=== PATIENT | male | born 1980 | race Caucasian/White ===

== ENCOUNTER 2019-01-07 03:10 | Emergency (ER) | payer MEDICAID, SELFPAY ==
[2019-01-07 03:12] VITALS: BP 165/95; PULSE 78; RESP 18; TEMP 36.9; O2SAT 98; BMI 23.8
--- NOTE | 2019-01-07 03:26 | EKG12_ITS ---
Test Reason : CP Blood Pressure : / mmHG Vent. Rate : 069 BPM Atrial Rate : 069 BPM P-R Int : 102 ms QRS Dur : 086 ms QT Int : 388 ms P-R-T Axes : 023 064 044 degrees QTc Int : 415 ms Sinus rhythm with short [place] Otherwise normal ECG Confirmed by SELWYN MEJÍA, AVA ([id number]), rewrite editor MARTA CORRIGAN ([id number] on 01/11/2019 4:33:18 PM Referred By: BB Confirmed By:AVA SAMANO MD
--- NOTE | 2019-01-07 03:26 | RAD_ITS ---
HISTORY: CPChest PainRAD - Chestpossible alcohol withdrawal EXAM: XR Chest 1 View COMPARISON: None FINDINGS: LINES/DEVICES: None. LUNGS: Radiographically clear. No consolidation, edema or effusion. No pneumothorax. Hyperinflation bilaterally. MEDIASTINUM AND CARDIOVASCULAR STRUCTURES: Cardiac silhouette not enlarged. Central airways and mediastinal contour are unremarkable. BONES AND SOFT TISSUES: Unremarkable. RAD/Chest 1 View (Portable) IMPRESSION: Hyperinflation may be due to deep inspiration or COPD. No radiographic evidence of acute cardiopulmonary disease. at [id number] Reported and signed by: Jose Alejandro Damico MD Electronically Signed: Jose Alejandro Damico, at 4:15 EDT Tel , Service support ,
--- NOTE | 2019-01-07 03:27 | ED.VIS.GEN ---
History of Present Illness Chief Complaint: Chest Pain Informant: Patient Onset: Hours - 12-15 Context: Gradual Onset Timing: Continuous Quality: burning Location: entire chest and epigastrium. no radiation. Current Severity: Moderate Maximum Severity: Moderate Worsened by: lying down. nonexertional, nonpleuritic. Relieved by: nothing Associated Symptoms: sob, anxious, nausea, upper abd cramping Narrative: Patient states symptoms started the same day that he is trying to stop drinking. He has been in detox for alcohol twice this year, the last time was last month. He has been binge drinking for the past 2.5 weeks, and today he went from drinking 20 beers a day down to 8, total. While doing this, he started feeling like he was withdrawing, including the above symptoms which he has had before with withdrawals. He has a history of using heroin and cocaine but not in a while, he states. No cocaine use this year. Wants to stop drinking. - Past Medical History (1) Alcoholism Status: Chronic (2) Hypertension Status: Chronic Past Medical History - Allergies and Home Meds Allergies/Adverse Reactions: Allergies Sulfa (Sulfonamide Antibiotics) Adverse Reaction (Verified 01/07/19 03:14) Hives Lives: Spouse/ Significant Other Smoking Status: Current every day smoker Alcohol: Heavy Drugs: None - Currently Review of Systems General: Reports: Malaise, Sweats. Denies: Chills, Fever Eyes: Denies: Visual changes - bilaterally, Diplopia ENT: Denies: Rhinorrhea, Sore throat Cardiovascular: Reports: Chest pain. Denies: Palpitations Respiratory: Reports: Dyspnea. Denies: Cough, Dyspnea on exertion Gastrointestinal: Reports: Abdominal pain, Nausea. Denies: Vomiting, Diarrhea, Melena, Hematochezia Genitourinary: Denies: Dysuria, Hematuria, Frequency Musculoskeletal: Denies: Back pain, Swelling, Extremity Pain Skin: Denies: Rash, Wounds Neurological: Denies: Headache, Weakness, Numbness Psych: Reports: Anxiety. Denies: Suicidal thoughts Physical Exam Vital Signs/Narrative: Vital Signs Temp Pulse Resp BP Pulse Ox 01/07/19 03:12 98.4 F 78 18 165/95 H 98 Inital Vital Signs reviewed: Yes General: Well nourished, Well developed, No Acute Distress Head: Normocephalic, Atraumatic Eyes: Perrl, EOMI ENT: Moist mucous membranes, No rhinorrhea Neck: Supple, Nontender Cardiovascular: Regular rate, Regular rhythm, No murmurs. Negative for: Tachycardia Respiratory: No distress, CTA bilaterally, Chest nontender Abdomen: Soft, Nondistended, Normal bowel sounds, Tender - mild epigastric. Negative for: Guarding, Rebound tenderness Back: Nontender, Normal Inspection Extremities: Nontender, No edema. Negative for: Calf Tenderness Skin: Normal color, No rash, No Trauma. Negative for: Diaphoresis Neurological: Alert, Oriented x3, Cranial nerves II-XII grossly intact, Normal Strength, Normal Sensation Psychological: Normal Mood, - - anxious. cooperative. Diagnostic/Tx/Re-eval Impressions Chest X-Ray 01/07/19 03:26 IMPRESSION: Hyperinflation may be due to deep inspiration or COPD. No radiographic evidence of acute cardiopulmonary disease. at 0417 Reported and signed by: Jose Alejandro Damico MD Electronically Signed: Jose Alejandro Damico, at 4:15 EDT Tel , Service support , 01/07/19 03:26 Chest 1 View (Portable) [RAD] Stat Laboratory Results 01/07/19 01/07/19 01/07/19 03:36 03:36 03:36 WBC Cancelled Corrected WBC Cancelled RBC Cancelled Hgb Cancelled Hct Cancelled MCV Cancelled MCH Cancelled MCHC Cancelled RDW Cancelled RDW Differential Cancelled Plt Count Cancelled MPV Cancelled Immature Gran % (Auto) Cancelled Neut % (Auto) Cancelled Lymph % (Auto) Cancelled [place] % (Auto) Cancelled Eos % (Auto) Cancelled Baso % (Auto) Cancelled Immature Gran # (Auto) Cancelled Absolute Neuts (auto) Cancelled Absolute Lymphs (auto) Cancelled Absolute Monos (auto) Cancelled Total Counted Cancelled Neutrophils % (Manual) Cancelled Band Neutrophils % Cancelled Lymphocytes % (Manual) Cancelled Monocytes % (Manual) Cancelled Eosinophils % (Manual) Cancelled Basophils % (Manual) Cancelled Metamyelocytes % Cancelled Myelocytes % Cancelled Promyelocytes % Cancelled Blast Cells % Cancelled Plasma Cell % (Manual) Cancelled Other Cells % Cancelled Lymphocytes # Cancelled Nucleated RBCs/100 WBC Cancelled Differential Comment Cancelled Diff Path Review Cancelled Hypersegmented Neuts Cancelled Atypical Lymphocytes Cancelled Reactive Lymphocytes Cancelled Smudge Cells Cancelled Eosinophilia # Cancelled Basophilia # Cancelled Toxic Granulation Cancelled Dohle Bodies Cancelled Kee Rods Cancelled Platelet Estimate Cancelled Plt Morphology Comment Cancelled RBC Morphology Cancelled Polychromasia Cancelled Hypochromasia Cancelled Poikilocytosis Cancelled Basophilic Stippling Cancelled Anisocytosis Cancelled Microcytosis Cancelled Macrocytosis Cancelled Spherocytes Cancelled Sickle Cells Cancelled Target Cells Cancelled Tear Drop Cells Cancelled Ovalocytes Cancelled Stomatocytes Cancelled [place] Bodies Cancelled Adwoa Cells Cancelled Bite Cells Cancelled Acanthocytes (Spur) Cancelled Rouleaux Cancelled Schistocytes Cancelled Sodium Cancelled Potassium Cancelled Chloride Cancelled Carbon Dioxide Cancelled Anion Gap Cancelled BUN Cancelled Creatinine Cancelled Estim Creat Clear Calc Cancelled Est GFR (MDRD) Af Amer Cancelled Est GFR (MDRD) Non-Af Cancelled BUN/Creatinine Ratio Cancelled Glucose Cancelled Calcium Cancelled Troponin I Cancelled Ur Drug Screen Comment Ethyl Alcohol Cancelled 01/07/19 01/07/19 01/07/19 04:00 04:00 04:00 WBC 10.4 Corrected WBC RBC 5.69 Hgb 17.8 H Hct 51.3 MCV 90.2 MCH 31.3 MCHC 34.7 RDW 13.0 RDW Differential 43.3 Plt Count 166 MPV 9.7 Immature Gran % (Auto) 0.100 Neut % (Auto) 73.0 H Lymph % (Auto) 16.2 L [place] % (Auto) 7.4 Eos % (Auto) 3.1 Baso % (Auto) 0.2 Immature Gran # (Auto) Absolute Neuts (auto) 7.6 Absolute Lymphs (auto) 1.69 Absolute Monos (auto) Total Counted Not Reportable Neutrophils % (Manual) Band Neutrophils % Lymphocytes % (Manual) Monocytes % (Manual) Eosinophils % (Manual) Basophils % (Manual) Metamyelocytes % Myelocytes % Promyelocytes % Blast Cells % Plasma Cell % (Manual) Other Cells % Lymphocytes # Nucleated RBCs/100 WBC Differential Comment Diff Path Review Hypersegmented Neuts Atypical Lymphocytes Reactive Lymphocytes Smudge Cells Eosinophilia # Basophilia # Toxic Granulation Dohle Bodies Kee Rods Platelet Estimate Plt Morphology Comment RBC Morphology Polychromasia Hypochromasia Poikilocytosis Basophilic Stippling Anisocytosis Microcytosis Macrocytosis Spherocytes Sickle Cells Target Cells Tear Drop Cells Ovalocytes Stomatocytes [place] Bodies Adwoa Cells Bite Cells Acanthocytes (Spur) Rouleaux Schistocytes Sodium 138 Potassium 3.9 Chloride 102 Carbon Dioxide 28.0 Anion Gap 8 BUN 12 Creatinine 0.79 Estim Creat Clear Calc 139.16 Est GFR (MDRD) Af Amer 142 Est GFR (MDRD) Non-Af 117 BUN/Creatinine Ratio 15.3 Glucose 118 H Calcium 8.8 Troponin I < 0.015 Ur Drug Screen Comment Ethyl Alcohol 5.0 - Rhythm Strip Rhythm Strip: Sinus Rhythm Rate: 70 Ectopy: None - EKG Initial EKG Interpretation: Sinus Rhythm, No Acute Injury Pattern - normal ekg - Medical Decision Making Workup is negative. After IV fluids, Zofran, Ativan, patient is feeling much better, appears less tremulous and anxious. He was offered inpatient detox. He is interested in it, and asked a lot of questions, as did his significant other. He wants to stop drinking. However he does not have insurance coverage right now and unfortunately the detox unit requires $5000 upfront in this scenario. He does not need to be admitted medically, he is in no life-threatening danger of delirium tremens right now. He states he has gotten himself off of alcohol in the past, and wishes to do so if he is able along with outpatient help. He was given several resources including [facility] and [facility]. He is always welcome to return if he gets worse and we discussed signs and symptoms to watch for. They are comfortable with this plan and will call for outpatient assistance. After a GI cocktail, his chest discomfort and abdominal discomfort are resolved, and I do not think there is any cardiac component to the symptoms. ED Disposition - Plan for ED Patient: Disposition: Home or Assisted Living Diagnosis: Chest pain, unspecified, Alcohol withdrawal, Anxiety Instructions: ED Chest Pain NonCardiac, ED Withdrawal Alcohol Referrals: Lauren Gramajo [NON-STAFF] - (for primary care while uninsured) [facility] [STAFF PHYSICIAN] - (for outpatient rehab services)
[2019-01-07] MEDS: Ondansetron 4 MG/2 ML Vial IV (03:57)
[2019-01-07] MEDS: 0.9% Normal Saline 1,000 ML 250 ML IV (03:57)
[2019-01-07] MEDS: LORazepam 2 MG/ML Syringe 1 MG IV (03:58)
[2019-01-07] MEDS: Mag Hydrox/Al Hydrox/Simeth 30 ML UDC PO (04:04)
[2019-01-07 04:12] LABS: Absolute Lymphocyte Count 1.69 X10^3/ul (0.83-4.51); Absolute Neutrophil Count 7.6 X10^3/uL (2.0-7.7); Basophil# 0.02 X10^3/uL; Basophil% 0.2 % (0-1); Eosinophil# 0.32 X10^3/uL; Eosinophils% 3.1 % (0-5); Hematocrit 51.3 % (40-54); Hemoglobin 17.8 g/dl (13.0-16.5); Lymphocyte # 1.69 X10^3/ul (4.0); Lymphocyte % 16.2 % (19-41); Mean Corp Hgb Conc 34.7 g/gl (32-36); Mean Corpuscular Hgb 31.3 pg (27.0-32.0); Mean Corpuscular Volume 90.2 fL (80-94); Mean Platelet Vol. 9.7 fl (6.2-12.0); Monocyte# 0.77 X10^3/uL; Monocyte% 7.4 % (0-10); Neutrophil # 7.61 X10^3/uL (2.7-7.7); Platelet Count 166 K/mm3 (150-450); RBC Distribution Width SD 43.3 fl (35.1-43.9); Red Blood Count 5.69 M/mm3 (4.6-6.2); White Blood Count 10.4 K/mm3 (4.4-11.0)
[2019-01-07 04:14] LABS: POSITIVE COUNT NO; POSITIVE DIFFERENTIAL NO; POSITIVE MORPHOLOGY NO
[2019-01-07 04:24] LABS: Anion Gap 8 (5-15); BUN 12 mg/dL (7-18); BUN/Creat Ratio 15.3 RATIO (10-20); Calcium,Total 8.8 mg/dL (8.5-10.1); Chloride 102 mmol/L (98-107); Creatinine, Serum 0.79 mg/dL (0.70-1.30); EST Glomerular Filtration Rate 117 mL/min (>60); Est Glom Filt Rate - Afr Amer 142 mL/min (>60); Estimated Creatinine Clearance 139.16 ml/min; Glucose 118 mg/dL (74-106); Potassium 3.9 mmol/L (3.5-5.1); Sodium Level 138 mmol/L (136-145)
[2019-01-07 04:28] VITALS: PULSE 68; RESP 16; O2SAT 93; O2SAT 94
[2019-01-07 05:06] VITALS: BP 126/88; PULSE 67; RESP 17; O2SAT 95
[2019-01-07 05:22] LABS: Vista UDS pH Range 6
[2019-01-07 05:33] LABS: Amphetamine Urine VISTA NEGATIVE (<1000 ng/mL); Barbiturate Urine VISTA NEGATIVE (< 200 ng/mL); Benzodiazepine Urine VISTA NEGATIVE (< 200 ng/mL); Cocaine Urine VISTA NEGATIVE (< 300 ng/mL); Ecstacy Urine VISTA NEGATIVE (< 500 ng/mL); Methadone Urine VISTA NEGATIVE (< 300 ng/mL); PCP Urine VISTA NEGATIVE (< 25 ng/mL); THC Urine VISTA NEGATIVE (< 50 ng/mL)
[2019-01-07 05:48] VITALS: BP 135/89; PULSE 72; RESP 15; O2SAT 98
== END 2019-01-07 05:51 | disposition home or self-care (01) ==
PROVIDERS: Emergency Provider Emergency Medicine
DX: R07.9 Chest pain, unspecified (principal); F10.239 Alcohol dependence with withdrawal, unspecified; Y90.9 Presence of alcohol in blood, level not specified; F41.9 Anxiety disorder, unspecified; I10 Essential (primary) hypertension; F17.200 Nicotine dependence, unspecified, uncomplicated; Z79.899 Other long term (current) drug therapy
CPT/HCPCS: 71045; 80048; 80307; 80320; 84484; 85025; 93005; 96361; 96374; 96375; 99284; J7030; A4216; G0480; J2405

== ENCOUNTER 2019-01-07 17:15 | Emergency (ER) | payer MEDICAID, SELFPAY ==
[2019-01-07 03:12] VITALS: BMI 23.8
[2019-01-07 17:16] VITALS: BP 167/108; PULSE 90; RESP 16; TEMP 36.7; O2SAT 97; BMI 23.1
--- NOTE | 2019-01-07 17:27 | ED.VISSUMM ---
- ER Visit Summary Date of Service: 01/07/19 Chief Complaint: Neck pain History of Present Illness: The patient is a 38 M who has sudden onset of neck pain. It happened 10 minutes ago. He felt a pop in his neck. He then felt some paresthesias in his face. He just feels weird. His neck is not hurting significantly now. He was at [facility] today for alcohol withdrawal. He is to go back tomorrow. Physical Examination: Vital signs reviewed. HEENT exam unremarkable. Heart is regular rate and rhythm without murmurs. Lungs are clear to auscultation. Abdomen is soft and nontender. Extremities reveal no edema. Skin exam normal. Neurologic exam normal. He is mildly tremulous Test Results: None performed Emergency Department Course and Treatment: At this point he is no significant pain. He has normal sensation of his face. He has no droop or slurred speech. His NIH is 0. I do not feel he is having a stroke. I will give him a dose of ibuprofen. He will follow-up tomorrow Treatment Plan: [] Disposition: Discharge Impression: Neck pain This note was generated with [employer] dictation software. It may contain incorrect words, spelling, and punctuation that were not noted in review of the chart prior to signing ED Disposition - Plan for ED Patient: Referrals: Care Physician,No Primary [Primary Care Provider] -
--- NOTE | 2019-01-07 17:28 | ED.DEP ---
ED Disposition - Plan for ED Patient: Disposition: Home or Assisted Living Instructions: ED Neck Pain No Trauma Referrals: Care Physician,No Primary [Primary Care Provider] -
[2019-01-07] MEDS: Ibuprofen 600 MG Tablet PO (17:33)
[2019-01-07 17:45] VITALS: BP 164/92; PULSE 71; RESP 15; O2SAT 98
== END 2019-01-07 17:45 | disposition home or self-care (01) ==
LOC: ED 17:38
PROVIDERS: Emergency Provider Emergency Medicine
DX: M54.2 Cervicalgia (principal); I10 Essential (primary) hypertension
CPT/HCPCS: 99283

== ENCOUNTER 2019-01-10 03:32 | Emergency (ER) | payer MEDICAID, SELFPAY ==
[2019-01-10 03:34] VITALS: BP 185/107; PULSE 96; RESP 14; TEMP 36.7; O2SAT 98
[2019-01-10 03:37] VITALS: BP 185/107; PULSE 106; RESP 14; TEMP 36.7; O2SAT 98; BMI 23.8
--- NOTE | 2019-01-10 04:04 | EKG12_ITS ---
Test Reason : PALPITATIONS Blood Pressure : / mmHG Vent. Rate : 105 BPM Atrial Rate : 105 BPM P-R Int : 194 ms QRS Dur : 088 ms QT Int : 346 ms P-R-T Axes : 000 058 -41 degrees QTc Int : [address] & T wave abnormality, consider inferior ischemia Abnormal ECG Confirmed by SELWYN MEJÍA, AVA ([id number]), rewrite editor MARTA CORRIGAN ([id number]) on 01/13/2019 9:02:52 AM Referred By: CHEVY Confirmed By:AVA SAMANO MD
--- NOTE | 2019-01-10 04:04 | RAD_ITS ---
STUDY: X-RAY CHEST REASON FOR EXAM: Male, 38 years old. Shortness of breath. TECHNIQUE: Frontal and lateral views of the chest. COMPARISON: 01/07/2019. FINDINGS: The lungs are clear and mildly hyper expanded. There is no demonstrated pleural abnormality. Normal size heart. Normal mediastinum and eloisa. Normal visualized pulmonary arteries. Normal visualized aortic arch and descending thoracic aorta. Normal visualized thoracic spine. Normal visualized ribs, clavicles, and shoulders. There is no demonstrated abnormality of the visualized soft tissue structures of the upper abdomen. RAD/Chest PA and Lateral IMPRESSION: Mild hyperexpansion of the lungs, which may be due to very good inspiratory effort or may represent acute or chronic air trapping. No demonstrated pulmonary infiltrate. Electronically Signed: Willem Diaz MD at 4:58 EDT , Service support ,
--- NOTE | 2019-01-10 04:08 | ED.DCSUM_ITS ---
- ER Visit Summary Date of Service: 01/10/19 Chief Complaint: Possible allergic reaction History of Present Illness: The patient is a 38 M who presents with a possible allergic reaction that began today. Patient states he developed shaking and palpitations today. Patient states this started after taking his metoprolol and then after taking his Atarax. Patient also states he has been having some muscle spasms and myalgias. Patient also admits to some shortness of breath. Patient denies any chest pain. Patient states he feels like his heart is racing at times. Patient states he has been in alcohol withdrawal in the past but states this does not feel like that. Patient states he drinks approximately 6 beers per day. Patient states his last drink was approximately 12 hours prior to arrival. Physical Examination: Vital signs are stable except for an elevated blood press ure of 185/107. Patient is afebrile. Patient is in no acute distress. Oral mucosa is pink and moist. Neck is supple. Trachea is midline. There is no JVD noted. Heart was regular rate and rhythm. Lungs are clear and equal bilateral. Abdomen is soft. Bowel sounds are normal. There is some mild epigastric tenderness. There is no rebound or guarding noted. Cranial nerves II through XII are intact. There are no focal motor or sensory deficits noted. Test Results: CBC was normal. Comprehensive metabolic profile shows slightly elevated bilirubin of 1.5 and a slightly elevated AST of 42 and ALT is 79. Urinalysis was normal. Troponin was normal. EKG showed sinus tachycardia with rate of 105. There are nonspecific ST-T wave changes. There are no prior EKGs available for comparison. PA and lateral chest x-ray was obtained and was normal. Emergency Department Course and Treatment: Patient was feeling somewhat better on reevaluation. Patient states she was still feeling somewhat anxious but is reluctant to take the Atarax due to the symptoms he came in here for. Patient was instructed to follow-up with [facility] to get help with his alcohol abuse. Patient and his understood and were agreeable with the plan. All questions were answered. Disposition: Discharge home Impression: Acute anxiety This note was generated with [employer] dictation software. It may contain incorrect words, spelling, and punctuation that were not noted in review of the chart prior to signing ED Disposition - Plan for ED Patient: Disposition: Home or Assisted Living Diagnosis: Anxiety, Alcoholism Instructions: ED Panic Attack, ED Alcohol Abuse Referrals: Care Physician,No Primary [Primary Care Provider] - Lauren Gramajo [NON-STAFF] - 3-5 Days
[2019-01-10 04:18] LABS: Absolute Lymphocyte Count 3.18 X10^3/ul (0.83-4.51); Absolute Neutrophil Count 4.3 X10^3/uL (2.0-7.7); Basophil# 0.03 X10^3/uL; Basophil% 0.3 % (0-1); Eosinophil# 0.31 X10^3/uL; Eosinophils% 3.5 % (0-5); Hematocrit 50.3 % (40-54); Hemoglobin 17.3 g/dl (13.0-16.5); Lymphocyte # 3.18 X10^3/ul (4.0); Lymphocyte % 36.3 % (19-41); Mean Corp Hgb Conc 34.4 g/gl (32-36); Monocyte# 0.96 X10^3/uL; Neutrophil # 4.26 X10^3/uL (2.7-7.7); Neutrophil % 48.8 % (47-70); Platelet Count 166 K/mm3 (150-450); RBC Distribution Width CV 13.2 % (11.6-14.6); Red Blood Count 5.41 M/mm3 (4.6-6.2); White Blood Count 8.8 K/mm3 (4.4-11.0)
[2019-01-10 04:21] LABS: International Normalized Ratio 0.9; Prothrombin Time (Protime)PT. 12.4 SECONDS (11.7-14.9)
[2019-01-10] MEDS: LORazepam 2 MG/ML Syringe 0.5 MG IV (04:26)
[2019-01-10] MEDS: 0.9% Normal Saline 1,000 ML 1000 ML IV (04:27)
[2019-01-10 04:30] LABS: POSITIVE COUNT NO; POSITIVE DIFFERENTIAL NO; POSITIVE MORPHOLOGY NO
[2019-01-10 04:33] LABS: Bacteria 0 SEEN /hpf (None Seen); Mucous, Urine 0 SEEN /hpf (<or=2+); Red Blood Cells-Urine 0 SEEN /hpf (0-5); Squamous Epithelial Cells - UA 0 SEEN /hpf (0-5); White Blood Cells 0 SEEN /hpf (0-5)
[2019-01-10 04:35] LABS: ALB/GLOB Ratio 1.1 RATIO (0.9-2.4); AST(SGOT) 42 U/L (15-37); Alanine Aminotransfer ALT/SGPT 79 U/L (16-61); Albumin, Serum 4.1 g/dL (3.2-5.0); Alkaline Phosphatase 87 U/L (45-117); Anion Gap 9 (5-15); BUN 10 mg/dL (7-18); BUN/Creat Ratio 10.2 RATIO (10-20); Calcium,Total 9.2 mg/dL (8.5-10.1); Chloride 102 mmol/L (98-107); Creatinine, Serum 0.98 mg/dL (0.70-1.30); EST Glomerular Filtration Rate 91 mL/min (>60); Est Glom Filt Rate - Afr Amer 110 mL/min (>60); Estimated Creatinine Clearance 112.18 ml/min; Globulin 3.7 g/dL (2.2-4.2); Glucose 113 mg/dL (74-106); Lipase 137 U/L (73-393); Potassium 3.4 mmol/L (3.5-5.1); Protein, Total 7.8 g/dL (6.4-8.2); Sodium Level 139 mmol/L (136-145)
[2019-01-10 04:49] LABS: Color, Urine Yellow (Yellow); Glucose, Dipstick Normal (Normal); Ketone-Dipstick 5 mg/dl (Negative); Leukocyte Esterase-Dipstick Negative /ul (Negative); Nitrite-Dipstick Negative (Negative); Occult Blood-Urine Negative /ul (Negative); Protein-Dipstick Negative (Negative); Urine Bilirubin Dipstick Negative (Negative); Urine Clarity Clear (Clear); Urine Urobilinogen Normal (Normal)
[2019-01-10 05:50] VITALS: BP 144/93; PULSE 72; RESP 20; O2SAT 97
--- NOTE | 2019-01-10 05:51 | ED.RN ---
THIS NURSE REVIEWED D/C INSTRUCTIONS WITH PT AND VISITOR. PT VERBALIZED UNDERSTANDING OF INSTRUCTIONS. IV D/C. IV CATHETER INTACT. PT TOLERATED WELL. PT DENIES FURTHER NEEDS OR QUESTIONS AT THIS TIME.
== END 2019-01-10 05:55 | disposition home or self-care (01) ==
PROVIDERS: Emergency Provider Emergency Medicine
DX: F41.9 Anxiety disorder, unspecified (principal); F10.10 Alcohol abuse, uncomplicated; Y90.9 Presence of alcohol in blood, level not specified; Z72.0 Tobacco use
CPT/HCPCS: 71046; 80053; 81001; 83690; 84484; 85025; 85610; 93005; 96361; 96374; 99284; J7030; A4216

== ENCOUNTER 2019-02-25 12:12 | Inpatient (IN) | payer MEDICAID, SELFPAY ==
[2019-02-25 12:41] VITALS: BMI 23.6
[2019-02-25 13:05] VITALS: BP 127/81; PULSE 72; RESP 16; TEMP 37.1
[2019-02-25 13:08] VITALS: O2SAT 95
--- NOTE | 2019-02-25 13:45 | NEWVISION ---
Patient has already had an assessment with [facility]. [facility] arranged an appointment to begin counseling with agency on 03/10/2019.
--- NOTE | 2019-02-25 14:03 | PCM.HP.STD ---
History of Present Illness Date of Admission: 02/25/19 Chief Complaint: acute alcohol withdrawal The patient is a 38 year old M with past medical history of hypertension and alcohol abuse. He was admitted through the [facility] program on 02/08/2019 with a complaint of acute alcohol withdrawal. Patient drinks about 2016 ounce cans of beer daily and states he thinks he drinks out of boredom because he does not have any. He has been in detox 3 times since September 2018 and subsequently went right back to drinking afterwards. He states he used to use other substances in the past but has stopped for a while now and has used cocaine or heroin in a while. He occasionally uses Klonopin but states he has used only about 5 mg since November of this year. He denied any fever or chills, palpitations or dizziness, chest pain, diarrhea vomiting. He has been admitted for acute alcohol withdrawal in the [facility] protocol. [] Past Medical History Past Medical History (Chronic Problems): Chronic Problems Alcoholism (Chronic) Hypertension (Chronic) Allergies Sulfa (Sulfonamide Antibiotics) Adverse Reaction (Verified 01/07/19 17:17) Hives Home Medications: Ambulatory Orders Medication Instructions Recorded Metoprolol Tartrate 12.5 gm PO BID 02/25/19 Pantoprazole Sodium [Protonix] 40 mg PO DAILY 02/25/19 Surgical History: no surgical history Psychiatric History: Anxiety Lives: Spouse/ Significant Other Smoking Status: Current every day smoker Alcohol: Heavy Drugs: None - *Family History Maternal History Items: No pertinent history Paternal History Items: No pertinent history Review of Systems Constitutional: Denies: Chills, Fever, Weight Change Eyes: Denies: Blurred vision HEENT: Denies: Head Aches, Sinus Congestion, Sinus Drainage Cardiovascular: Denies: Chest Pain, Palpitations Respiratory: Denies: Cough, Shortness of breath at rest, Sputum production Gastrointestinal: Denies: Abdominal Pain, Nausea, Vomiting Genitourinary: Denies: Dysuria Musculoskeletal: Denies: Joint Pain, Joint Tenderness Skin: Denies: Rash, Wounds Neurological: Denies: Numbness, Tingling, Focal weakness Psychiatric: Denies: Anxiety, Depression, Homicidal Ideations, Suicidal Ideations Hematologic/ Lymphatic: Denies: Easy Bruising, Easy Bleeding VTE Information - Inpt Only VTE Present on Admission: No VTE Pharm Prophylaxis ordered?: No Reason prophylaxis not ordered:: Treatment Not Indicated - low risk, encourage ambulation - Physical Exam General: Alert, Oriented x3, Cooperative, No apparent distress HEENT: Atraumatic, PERRLA, EOMI, Normocephalic Oral: Moist Mucosa Neck: Supple, No JVD, Negative Carotid Bruits Lungs: Clear to auscultation, Normal air movement, No rhonchi, No wheeze, No rales Cardiovascular: Regular rate, Regular Rhythm, Normal S1, Normal S2, No murmurs Abdomen: Bowel Sounds Present, Soft, Non Tender, Non-Distended, No Hepato-splenomegaly Extremities: No clubbing, No cyanosis, No edema, Capillary Refill Less than 3 Seconds Skin: No rashes, No breakdown Musculoskeletal: No Tenderness to Palpation of Joints or Extremities Lymphatic: No Cervical, Supraclavicular, or Inguinal Adenopathy Neurological: Cranial nerves II-XII grossly intact, Neuro grossly intact, Motor Exam 5/5 strength throughout Psych/Mental Status: Normal Affect, Appropriate, Alert and oriented to time, place, person, mood and affect Vital Signs Temp Pulse Resp BP Pulse Ox 98.7 F 72 16 127/81 H 95 02/25/19 13:05 02/25/19 13:05 02/25/19 13:05 02/25/19 13:05 02/25/19 13:08 Oxygen Delivery Method Room Air Weight: 174 lb Body Mass Index (BMI) 23.6 Assessment/Plan 38-year-old male admitted for acute alcohol withdrawal. 1. Acute alcohol withdrawal Admit to [facility] on the [facility] protocol Check CBC, CMP and magnesium as well as urine tox and serum alcohol level CIWA score on admission was 16 Start alcohol withdrawal protocol with Librium and [facility] protocol Monitor CIWA score Of note, patient states he has required phenobarbitone the past for acute alcohol withdrawal although he denies having been in the ICU. 2. Hypertension: on metoprolol 12.5mg bid. 3. Nicotine dependence: counselled to quit. Nicotine patch 21mg daily. DVT prophylaxis: low risk. Encourage ambulation Code Visit Inpatient E&M: 69423 Init Hosp L3
--- NOTE | 2019-02-25 14:12 | HP.PCM_ITS ---
History of Present Illness Date of Admission: 02/25/19 Chief Complaint: acute alcohol withdrawal The patient is a 38 year old M with past medical history of hypertension and alcohol abuse. He was admitted through the [facility] program on 02/08/2019 with a complaint of acute alcohol withdrawal. Patient drinks about 2016 ounce cans of beer daily and states he thinks he drinks out of boredom because he does not have any. He has been in detox 3 times since September 2018 and subsequently went right back to drinking afterwards. He states he used to use other substances in the past but has stopped for a while now and has used cocaine or heroin in a while. He occasionally uses Klonopin but states he has used only about 5 mg since November of this year. He denied any fever or chills, palpitations or dizziness, chest pain, diarrhea vomiting. He has been admitted for acute alcohol withdrawal in the [facility] protocol. [] Past Medical History Past Medical History (Chronic Problems): Chronic Problems Alcoholism (Chronic) Hypertension (Chronic) Allergies Sulfa (Sulfonamide Antibiotics) Adverse Reaction (Verified 01/07/19 17:17) Hives Home Medications: Ambulatory Orders Medication Instructions Recorded Metoprolol Tartrate 12.5 gm PO BID 02/25/19 Pantoprazole Sodium [Protonix] 40 mg PO DAILY 02/25/19 Surgical History: no surgical history Psychiatric History: Anxiety Lives: Spouse/ Significant Other Smoking Status: Current every day smoker Alcohol: Heavy Drugs: None - *Family History Maternal History Items: No pertinent history Paternal History Items: No pertinent history Review of Systems Constitutional: Denies: Chills, Fever, Weight Change Eyes: Denies: Blurred vision HEENT: Denies: Head Aches, Sinus Congestion, Sinus Drainage Cardiovascular: Denies: Chest Pain, Palpitations Respiratory: Denies: Cough, Shortness of breath at rest, Sputum production Gastrointestinal: Denies: Abdominal Pain, Nausea, Vomiting Genitourinary: Denies: Dysuria Musculoskeletal: Denies: Joint Pain, Joint Tenderness Skin: Denies: Rash, Wounds Neurological: Denies: Numbness, Tingling, Focal weakness Psychiatric: Denies: Anxiety, Depression, Homicidal Ideations, Suicidal Ideations Hematologic/ Lymphatic: Denies: Easy Bruising, Easy Bleeding VTE Information - Inpt Only VTE Present on Admission: No VTE Pharm Prophylaxis ordered?: No Reason prophylaxis not ordered:: Treatment Not Indicated - low risk, encourage ambulation - Physical Exam General: Alert, Oriented x3, Cooperative, No apparent distress HEENT: Atraumatic, PERRLA, EOMI, Normocephalic Oral: Moist Mucosa Neck: Supple, No JVD, Negative Carotid Bruits Lungs: Clear to auscultation, Normal air movement, No rhonchi, No wheeze, No rales Cardiovascular: Regular rate, Regular Rhythm, Normal S1, Normal S2, No murmurs Abdomen: Bowel Sounds Present, Soft, Non Tender, Non-Distended, No Hepato- splenomegaly Extremities: No clubbing, No cyanosis, No edema, Capillary Refill Less than 3 Seconds Skin: No rashes, No breakdown Musculoskeletal: No Tenderness to Palpation of Joints or Extremities Lymphatic: No Cervical, Supraclavicular, or Inguinal Adenopathy Neurological: Cranial nerves II-XII grossly intact, Neuro grossly intact, Motor Exam 5/5 strength throughout Psych/Mental Status: Normal Affect, Appropriate, Alert and oriented to time, place, person, mood and affect Vital Signs Temp Pulse Resp BP Pulse Ox 98.7 F 72 16 127/81 H 95 02/25/19 13:05 02/25/19 13:05 02/25/19 13:05 02/25/19 13:05 02/25/19 13:08 Oxygen Delivery Method Room Air Weight: 174 lb Body Mass Index (BMI) 23.6 Assessment/Plan 38-year-old male admitted for acute alcohol withdrawal. 1. Acute alcohol withdrawal * Admit to [facility] on the [facility] protocol * Check CBC, CMP and magnesium as well as urine tox and serum alcohol level * CIWA score on admission was 16 * Start alcohol withdrawal protocol with Librium and [facility] protocol * Monitor CIWA score * Of note, patient states he has required phenobarbitone the past for acute alcohol withdrawal although he denies having been in the ICU. * 2. Hypertension: on metoprolol 12.5mg bid. 3. Nicotine dependence: counselled to quit. Nicotine patch 21mg daily. DVT prophylaxis: low risk. Encourage ambulation Code Visit Inpatient E&M: 78686 Init Hosp L3
[2019-02-25 14:14] LABS: Absolute Lymphocyte Count 2.32 X10^3/ul (0.83-4.51); Basophil# 0.08 X10^3/uL; Basophil% 0.7 % (0-1); Eosinophil# 0.56 X10^3/uL; Eosinophils% 4.8 % (0-5); Hematocrit 55.1 % (40-54); Lymphocyte # 2.32 X10^3/ul (4.0); Lymphocyte % 19.8 % (19-41); Mean Corp Hgb Conc 35.6 g/gl (32-36); Mean Corpuscular Hgb 33.3 pg (27.0-32.0); Mean Corpuscular Volume 93.5 fL (80-94); Mean Platelet Vol. 9.3 fl (6.2-12.0); Monocyte# 0.71 X10^3/uL; Monocyte% 6.1 % (0-10); Neutrophil # 8.01 X10^3/uL (2.7-7.7); Neutrophil % 68.2 % (47-70); Platelet Count 216 K/mm3 (150-450); RBC Distribution Width CV 14.7 % (11.6-14.6); RBC Distribution Width SD 50.3 fl (35.1-43.9); Red Blood Count 5.89 M/mm3 (4.6-6.2); White Blood Count 11.7 K/mm3 (4.4-11.0)
[2019-02-25 14:15] LABS: POSITIVE COUNT NO; POSITIVE DIFFERENTIAL NO; POSITIVE MORPHOLOGY NO
[2019-02-25 14:17] LABS: Hemoglobin 19.6 g/dl (13.0-16.5)
[2019-02-25] MEDS: chlordiazePOXIDE 25 MG Capsule PO ×2 (14:21→20:30)
[2019-02-25 14:26] LABS: ALB/GLOB Ratio 0.9 RATIO (0.9-2.4); AST(SGOT) 41 U/L (15-37); Alanine Aminotransfer ALT/SGPT 78 U/L (16-61); Albumin, Serum 3.8 g/dL (3.2-5.0); Alkaline Phosphatase 112 U/L (45-117); Anion Gap 9 (5-15); BUN 11 mg/dL (7-18); BUN/Creat Ratio 10.7 RATIO (10-20); Calcium,Total 8.7 mg/dL (8.5-10.1); Chloride 106 mmol/L (98-107); Creatinine, Serum 1.03 mg/dL (0.70-1.30); EST Glomerular Filtration Rate 86 mL/min (>60); Est Glom Filt Rate - Afr Amer 104 mL/min (>60); Estimated Creatinine Clearance 106.73 ml/min; Globulin 4.1 g/dL (2.2-4.2); Glucose 104 mg/dL (74-106); Magnesium 2.2 mg/dL (1.6-2.6); Protein, Total 7.9 g/dL (6.4-8.2); Sodium Level 141 mmol/L (136-145)
[2019-02-25] MEDS: 0.9% Normal Saline 1,000 ML 150 ML IV ×2 (16:04→22:03)
[2019-02-25 17:46] VITALS: BP 139/83; PULSE 75; RESP 16; TEMP 37.1; O2SAT 98
[2019-02-25] MEDS: Pantoprazole Sodium 40 MG Tablet PO (17:52)
[2019-02-25 17:55] LABS: Bedside Glucose 116 mg/dL (70-110)
[2019-02-25] MEDS: LORazepam 1 MG Tablet 2 MG PO (18:21)
[2019-02-25 20:29] VITALS: BP 141/96; PULSE 75
[2019-02-25] MEDS: Metoprolol Tartrate 25 MG Tablet 12.5 MG PO (20:29)
[2019-02-25] MEDS: Dicyclomine 10 MG Capsule 20 MG PO (20:33)
[2019-02-25 20:35] VITALS: BP 141/96; PULSE 75; RESP 18; TEMP 37.2
[2019-02-26] VITALS (8 sets, daily range): BP systolic 116–145; BP diastolic 77–91; PULSE 57–66; RESP 16–19; TEMP 36.4–37.1
[2019-02-26 01:51] LABS: Bedside Glucose 119 mg/dL (70-110)
[2019-02-26] MEDS: chlordiazePOXIDE 25 MG Capsule PO ×4 (02:35→23:36)
[2019-02-26] MEDS: Dicyclomine 10 MG Capsule 20 MG PO ×2 (05:51→14:07)
[2019-02-26 06:36] LABS: Bedside Glucose 101 mg/dL (70-110)
[2019-02-26 06:40] LABS: Absolute Neutrophil Count 4.4 X10^3/uL (2.0-7.7); Basophil# 0.04 X10^3/uL; Basophil% 0.5 % (0-1); Eosinophil# 0.54 X10^3/uL; Eosinophils% 6.8 % (0-5); Hematocrit 50.7 % (40-54); Hemoglobin 17.5 g/dl (13.0-16.5); Lymphocyte % 27.8 % (19-41); Mean Corp Hgb Conc 34.5 g/gl (32-36); Mean Corpuscular Hgb 32.2 pg (27.0-32.0); Mean Corpuscular Volume 93.4 fL (80-94); Mean Platelet Vol. 9.7 fl (6.2-12.0); Monocyte% 8.9 % (0-10); Neutrophil % 55.7 % (47-70); Platelet Count 165 K/mm3 (150-450); RBC Distribution Width CV 14.4 % (11.6-14.6); RBC Distribution Width SD 48.7 fl (35.1-43.9); Red Blood Count 5.43 M/mm3 (4.6-6.2); White Blood Count 7.9 K/mm3 (4.4-11.0)
[2019-02-26 06:45] LABS: POSITIVE COUNT NO; POSITIVE DIFFERENTIAL NO; POSITIVE MORPHOLOGY NO
[2019-02-26 07:13] LABS: Amphetamine Urine VISTA NEGATIVE (<1000 ng/mL); Barbiturate Urine VISTA POSITIVE (< 200 ng/mL); Benzodiazepine Urine VISTA POSITIVE (< 200 ng/mL); Cocaine Urine VISTA NEGATIVE (< 300 ng/mL); Ecstacy Urine VISTA NEGATIVE (< 500 ng/mL); Methadone Urine VISTA NEGATIVE (< 300 ng/mL); PCP Urine VISTA NEGATIVE (< 25 ng/mL); THC Urine VISTA NEGATIVE (< 50 ng/mL); Vista UDS pH Range 6
[2019-02-26] MEDS: Thiamine Hydrochloride 100 MG Tablet PO (08:01)
[2019-02-26] MEDS: Multivitamins,Therapeutic Tablet 1 TABLET PO (08:01)
[2019-02-26] MEDS: Folic Acid 1 MG Tablet PO (08:01)
--- NOTE | 2019-02-26 08:41 | PCM.PN.HOSP ---
Subjective: Patient was admitted with alcohol withdrawal syndrome. Patient had been in detox center for 3 times in March 2019 100 labs frequently. Patient also uses cocaine or heroin. Vitals/I&O's: Vital Signs Temp Pulse Resp BP Pulse Ox 97.5 F L 57 L 18 116/77 98 02/26/19 05:59 02/26/19 05:59 02/26/19 05:59 02/26/19 05:59 02/25/19 17:46 Oxygen Delivery Method Room Air Weight: 173 lb 15.997 oz Body Mass Index (BMI) 23.6 Intake and Output for Last 24 Hours 02/24/19 02/25/19 02/26/19 23:59 23:59 23:59 Intake Total 1995 1180 / 1180 Balance 1995 1180 / 1180 General: Alert, Cooperative, Lethargic, - - Mild restlessness. HEENT: Atraumatic, PERRLA, EOMI, Normocephalic Neck: Supple, No JVD, Negative Carotid Bruits Lungs: Clear to auscultation, Normal air movement, No rhonchi, No wheeze, No rales Cardiovascular: Regular rate, Regular Rhythm, Normal S1, Normal S2, No murmurs Abdomen: Bowel Sounds Present, Soft, Non Tender Extremities: No edema, Capillary Refill Less than 3 Seconds Skin: No rashes, No breakdown Musculoskeletal: No Tenderness to Palpation of Joints or Extremities, Arthritic Changes Neurological: Cranial nerves II-XII grossly intact Psych/Mental Status: Normal Affect, Appropriate Laboratory Results 02/25/19 14:00: WBC 11.7 H, RBC 5.89, Hgb 19.6 H*, Hct 55.1 H, MCV 93.5, MCH 33.3 H, MCHC 35.6, RDW 14.7 H, RDW Differential 50.3 H, Plt Count 216, MPV 9.3, Immature Gran % (Auto) 0.400, Neut % (Auto) 68.2, Lymph % (Auto) 19.8, [place] % (Auto) 6.1, Eos % (Auto) 4.8, Baso % (Auto) 0.7, Absolute Neuts (auto) 8.0 H, Absolute Lymphs (auto) 2.32, Total Counted Not Reportable 02/25/19 14:00: Sodium 141, Potassium 4.0, Chloride 106, Carbon Dioxide 26.0, Anion Gap 9, BUN 11, Creatinine 1.03, Estim Creat Clear Calc 106.73, Est GFR (MDRD) Af Amer 104, Est GFR (MDRD) Non-Af 86, BUN/Creatinine Ratio 10.7, Glucose 104, Calcium 8.7, Magnesium 2.2, Total Bilirubin 0.40, AST 41 H, ALT 78 H, Alkaline Phosphatase 112, Total Protein 7.9, Albumin 3.8, Globulin 4.1, Albumin/Globulin Ratio 0.9 02/25/19 14:00: Ethyl Alcohol 150.0 02/25/19 17:45: POC Glucose 116 H 02/25/19 22:00: POC Glucose 119 H 02/26/19 06:05: WBC 7.9, RBC 5.43, Hgb 17.5 H, Hct 50.7, MCV 93.4, MCH 32.2 H, MCHC 34.5, RDW 14.4, RDW Differential 48.7 H, Plt Count 165, MPV 9.7, Immature Gran % (Auto) 0.300, Neut % (Auto) 55.7, Lymph % (Auto) 27.8, [place] % (Auto) 8.9, Eos % (Auto) 6.8 H, Baso % (Auto) 0.5, Absolute Neuts (auto) 4.4, Absolute Lymphs (auto) 2.20, Total Counted Not Reportable 02/26/19 06:28: POC Glucose 101 02/26/19 06:50: Urine Opiates Screen NEGATIVE, Urine Methadone Screen NEGATIVE, Ur Barbiturates Screen POSITIVE H, Ur Phencyclidine Scrn NEGATIVE, Ur Amphetamines Screen NEGATIVE, U Methamphetamin-MDMA NEGATIVE, U Benzodiazepines Scrn POSITIVE H, Urine Cocaine Screen NEGATIVE, U Cannabinoids Screen NEGATIVE, Ur Drug Screen Comment Current Medications Chlordiazepoxide (Librium) 50 mg PO Q8H SANDEE; Taper Stop: 02/28/19 16:29 Last Admin: 02/26/19 08:00 Dose: 50 mg Dextrose (D50w Syringe) 0 gm IV X1 PRN; Protocol PRN Reason: Hypoglycemia Dicyclomine HCl (Bentyl) 20 mg PO Q6H PRN PRN PRN Reason: abdominal discomfort Last Admin: 02/26/19 05:51 Dose: 20 mg [facility]) [facility]: 02/28/19 08:01 Last Admin: 02/26/19 08:01 Dose: 1 mg Glucagon () 1 mg IM .X1 PRN PRN Reason: Hypoglycemia Lorazepam (Ativan) 2 mg IV X1 PRN PRN Reason: Seizure Methocarbamol (Methocarbamol) 750 mg PO Q6H PRN PRN PRN Reason: Muscle Aches Metoprolol Tartrate (Lopressor (Beta Gayle)) 12.5 mg PO BID [facility] Last Admin: 02/25/19 20:29 Dose: 12.5 mg Multivitamins (Multivitamin) [facility] Last Admin: 02/26/19 08:01 Dose: 1 tablet Nutritional Formula (Lactose Free) (Ensure Enlive) 120 ml PO 4X/DAY [facility] Last Admin: 02/25/19 20:32 Dose: 120 ml Pantoprazole Sodium (Protonix) 40 mg PO DAILY@1800 [facility] Last Admin: 02/25/19 17:52 Dose: 40 mg Thiamine HCl (Vitamin B1) [facility] Stop: 02/28/19 08:01 Last Admin: 02/26/19 08:01 Dose: 100 mg Medical Necessity - Tobacco Use Smoking Status: Current every day smoker Assessment/Plan This 30-year-old patient gentleman with history of chronic alcohol use and dependence. Patient also had used heroin and cocaine in the past. Uses Klonopin occasionally. 1. Acute alcohol withdrawal syndrome with history of chronic alcohol use and dependence: CIWA score on admission was 16. Currently 4. Potassium 4.0. 2. Alcoholic hepatitis: AST 41. ALT 78. Alkaline phosphatase 112. 3. polycythemia most probably is secondary secondary to hemoconcentration/dehydration and/or chronic alcohol use. Repeat H&H has improved. : Due to paralysis: Low risk encouraged ambulation. Laboratory Results 02/25/19 17:45: POC Glucose 116 H 02/25/19 22:00: POC Glucose 119 H 02/26/19 06:05: WBC 7.9, RBC 5.43, Hgb 17.5 H, Hct 50.7, MCV 93.4, MCH 32.2 H, MCHC 34.5, RDW 14.4, RDW Differential 48.7 H, Plt Count 165, MPV 9.7, Immature Gran % (Auto) 0.300, Neut % (Auto) 55.7, Lymph % (Auto) 27.8, [place] % (Auto) 8.9, Eos % (Auto) 6.8 H, Baso % (Auto) 0.5, Absolute Neuts (auto) 4.4, Absolute Lymphs (auto) 2.20, Total Counted Not Reportable 02/26/19 06:28: POC Glucose 101 02/26/19 06:50: Urine Opiates Screen NEGATIVE, Urine Methadone Screen NEGATIVE, Ur Barbiturates Screen POSITIVE H, Ur Phencyclidine Scrn NEGATIVE, Ur Amphetamines Screen NEGATIVE, U Methamphetamin-MDMA NEGATIVE, U Benzodiazepines Scrn POSITIVE H, Urine Cocaine Screen NEGATIVE, U Cannabinoids Screen NEGATIVE, Ur Drug Screen Comment Code Visit Inpatient E&M: 85903 Subs Hosp L2
[2019-02-26] MEDS: Metoprolol Tartrate 25 MG Tablet 12.5 MG PO ×2 (10:11→21:00)
[2019-02-26] MEDS: Pantoprazole Sodium 40 MG Tablet PO (17:20)
[2019-02-27 09:08] VITALS: BP 119/72; PULSE 50; RESP 14; TEMP 36.6
[2019-02-27] MEDS: chlordiazePOXIDE 25 MG Capsule PO ×2 (09:19→17:34)
[2019-02-27] MEDS: Folic Acid 1 MG Tablet PO (09:20)
[2019-02-27] MEDS: Multivitamins,Therapeutic Tablet 1 TABLET PO (09:20)
[2019-02-27] MEDS: Thiamine Hydrochloride 100 MG Tablet PO (09:20)
[2019-02-27 09:22] VITALS: PULSE 50
--- NOTE | 2019-02-27 09:35 | NURSING ---
This nurse informed Dr. Delcid that patients HR is only 50 and Scheduled Lopressor po was held.
--- NOTE | 2019-02-27 13:09 | PCM.PN.HOSP ---
Subjective: Patient has fine tremors. Heart rate bradycardic. Patient on metoprolol 12.5 mg twice daily after he had sinus tachycardia most probably from alcohol withdrawal, started outside facility when he was admitted. Patient denies atrial fibrillation or [place]. Vitals/I&O's: Vital Signs Temp Pulse Resp BP Pulse Ox 97.9 F 50 L 14 119/72 98 02/27/19 09:08 02/27/19 09:22 02/27/19 09:08 02/27/19 09:08 02/25/19 17:46 Oxygen Delivery Method Room Air Weight: 173 lb 15.997 oz Body Mass Index (BMI) 23.6 Intake and Output for Last 24 Hours 02/25/19 02/26/19 02/27/19 23:59 23:59 23:59 Intake Total 1995 1180 / 1180 600 / 600 Balance 1995 1180 / 1180 600 / 600 General: Alert, Oriented x3, Cooperative HEENT: Atraumatic, PERRLA, EOMI, Normocephalic Neck: Supple, No JVD, Negative Carotid Bruits Lungs: Clear to auscultation, Normal air movement Cardiovascular: Regular Rhythm, Normal S1, Normal S2, No murmurs, Bradycardic Abdomen: Bowel Sounds Present, Soft, Non Tender, Non-Distended Extremities: No edema, Capillary Refill Less than 3 Seconds Skin: No rashes, No breakdown Musculoskeletal: No Tenderness to Palpation of Joints or Extremities, Arthritic Changes Neurological: Cranial nerves II-XII grossly intact Psych/Mental Status: Normal Affect, Appropriate Current Medications Chlordiazepoxide (Librium) 50 mg PO Q8H SANDEE; Taper Stop: 02/28/19 16:29 Last Admin: 02/27/19 09:19 Dose: 50 mg Dextrose (D50w Syringe) 0 gm IV X1 PRN; Protocol PRN Reason: Hypoglycemia Dicyclomine HCl (Bentyl) 20 mg PO Q6H PRN PRN PRN Reason: abdominal discomfort Last Admin: 02/26/19 14:07 Dose: 20 mg Folic Acid (Folic Acid) 1 mg PO DAILYCM [facility]DEE Stop: 02/28/19 08:01 Last Admin: 02/27/19 09:20 Dose: 1 mg Glucagon () 1 mg IM .X1 PRN PRN Reason: Hypoglycemia Lorazepam (Ativan) 2 mg IV X1 PRN PRN Reason: Seizure Methocarbamol (Methocarbamol) 750 mg PO Q6H PRN PRN PRN Reason: Muscle Aches Metoprolol Tartrate (Lopressor (Beta Gayle)) 12.5 mg PO BID [facility] Last Admin: 02/27/19 09:22 Dose: Not Given [facility]it[facility]amin) [facility] Last Admin: 02/27/19 09:20 Dose: 1 tablet Nutritional Formula (Lactose Free) (Ensure Enlive) 120 ml PO 4X/DAY [facility] Last Admin: 02/27/19 09:21 Dose: 120 ml Pantoprazole Sodium (Protonix) 40 mg PO DAILY@1800 [facility] Last Admin: 02/26/19 17:20 Dose: 40 mg Thiamine HCl (Vitamin B1) [facility] Stop: 02/28/19 08:01 Last Admin: 02/27/19 09:20 Dose: 100 mg Medical Necessity - Tobacco Use Smoking Status: Current every day smoker Assessment/Plan This 30-year-old patient gentleman with history of chronic alcohol use and dependence. Patient also had used heroin and cocaine in the past. Uses Klonopin occasionally. 1. Acute alcohol withdrawal syndrome with history of chronic alcohol use and dependence: CIWA score on admission was 16. Currently 4. Potassium 4.0. 2. Alcoholic hepatitis: AST 41. ALT 78. Alkaline phosphatase 112. 3. Sinus bradycardia: Discontinue metoprolol. 4. polycythemia most probably is secondary secondary to hemoconcentration/dehydration and/or chronic alcohol use. Repeat H&H has improved. DVT prophylaxis: Low risk; encouraged ambulation. Laboratory Results 02/25/19 17:45: POC Glucose 116 H 02/25/19 22:00: POC Glucose 119 H 02/26/19 06:05: WBC 7.9, RBC 5.43, Hgb 17.5 H, Hct 50.7, MCV 93.4, MCH 32.2 H, MCHC 34.5, RDW 14.4, RDW Differential 48.7 H, Plt Count 165, MPV 9.7, Immature Gran % (Auto) 0.300, Neut % (Auto) 55.7, Lymph % (Auto) 27.8, [place] % (Auto) 8.9, Eos % (Auto) 6.8 H, Baso % (Auto) 0.5, Absolute Neuts (auto) 4.4, Absolute Lymphs (auto) 2.20, Total Counted Not Reportable 02/26/19 06:28: POC Glucose 101 02/26/19 06:50: Urine Opiates Screen NEGATIVE, Urine Methadone Screen NEGATIVE, Ur Barbiturates Screen POSITIVE H, Ur Phencyclidine Scrn NEGATIVE, Ur Amphetamines Screen NEGATIVE, U Methamphetamin-MDMA NEGATIVE, U Benzodiazepines Scrn POSITIVE H, Urine Cocaine Screen NEGATIVE, U Cannabinoids Screen NEGATIVE, Ur Drug Screen Comment Code Visit Inpatient E&M: 72614 Subs Hosp L2
--- NOTE | 2019-02-27 13:12 | PN_ITS ---
Subjective: Patient has fine tremors. Heart rate bradycardic. Patient on metoprolol 12.5 mg twice daily after he had sinus tachycardia most probably from alcohol withdrawal, started outside facility when he was admitted. Patient denies atrial fibrillation or [place]. Vitals/I&O's: Vital Signs Temp Pulse Resp BP Pulse Ox 97.9 F 50 L 14 119/72 98 02/27/19 09:08 02/27/19 09:22 02/27/19 09:08 02/27/19 09:08 02/25/19 17:46 Oxygen Delivery Method Room Air Weight: 173 lb 15.997 oz Body Mass Index (BMI) 23.6 Intake and Output for Last 24 Hours 02/25/19 02/26/19 02/27/19 23:59 23:59 23:59 Intake Total 1995 1180 / 1180 600 / 600 Balance 1995 1180 / 1180 600 / 600 General: Alert, Oriented x3, Cooperative HEENT: Atraumatic, PERRLA, EOMI, Normocephalic Neck: Supple, No JVD, Negative Carotid Bruits Lungs: Clear to auscultation, Normal air movement Cardiovascular: Regular Rhythm, Normal S1, Normal S2, No murmurs, Bradycardic Abdomen: Bowel Sounds Present, Soft, Non Tender, Non-Distended Extremities: No edema, Capillary Refill Less than 3 Seconds Skin: No rashes, No breakdown Musculoskeletal: No Tenderness to Palpation of Joints or Extremities, Arthritic Changes Neurological: Cranial nerves II-XII grossly intact Psych/Mental Status: Normal Affect, Appropriate Current Medications Chlordiazepoxide (Librium) 50 mg PO Q8H SANDEE; Taper Stop: 02/28/19 16:29 Last Admin: 02/27/19 09:19 Dose: 50 mg Dextrose (D50w Syringe) 0 gm IV X1 PRN; Protocol PRN Reason: Hypoglycemia Dicyclomine HCl (Bentyl) 20 mg PO Q6H PRN PRN PRN Reason: abdominal discomfort Last Admin: 02/26/19 14:07 Dose: 20 mg Folic Acid (Folic Acid) 1 mg PO DAILYCM [facility] Stop: 02/28/19 08:01 Last Admin: 02/27/19 09:20 Dose: 1 mg Glucagon () 1 mg IM .X1 PRN PRN Reason: Hypoglycemia Lorazepam (Ativan) 2 mg IV X1 PRN PRN Reason: Seizure Methocarbamol (Methocarbamol) 750 mg PO Q6H PRN PRN PRN Reason: Muscle Aches Metoprolol Tartrate (Lopressor (Beta Gayle)) 12.5 mg PO BID [facility] Last Admin: 02/27/19 09:22 Dose: Not Given Multivit[facility] ([facility]itamin) [facility] Last Admin: 02/27/19 09:20 Dose: 1 tablet Nutritional Formula (Lactose Free) (Ensure Enlive) 120 ml PO 4X/DAY [facility] Last Admin: 02/27/19 09:21 Dose: 120 ml Pantoprazole Sodium (Protonix) 40 mg PO DAILY@1800 [facility] Last Admin: 02/26/19 17:20 Dose: 40 mg Thiamine HCl (Vitamin B1) [facility] Stop: 02/28/19 08:01 Last Admin: 02/27/19 09:20 Dose: 100 mg Medical Necessity - Tobacco Use Smoking Status: Current every day smoker Assessment/Plan This 30-year-old patient gentleman with history of chronic alcohol use and dependence. Patient also had used heroin and cocaine in the past. Uses Klonopin occasionally. 1. Acute alcohol withdrawal syndrome with history of chronic alcohol use and dependence: CIWA score on admission was 16. Currently 4. Potassium 4.0. 2. Alcoholic hepatitis: AST 41. ALT 78. Alkaline phosphatase 112. 3. Sinus bradycardia: Discontinue metoprolol. 4. polycythemia most probably is secondary secondary to hemoconcentration/dehydration and/or chronic alcohol use. Repeat H&H has improved. DVT prophylaxis: Low risk; encouraged ambulation. Laboratory Results 02/25/19 17:45: POC Glucose 116 H 02/25/19 22:00: POC Glucose 119 H 02/26/19 06:05: WBC 7.9, RBC 5.43, Hgb 17.5 H, Hct 50.7, MCV 93.4, MCH 32.2 H, MCHC 34.5, RDW 14.4, RDW Differential 48.7 H, Plt Count 165, MPV 9.7, Immature Gran % (Auto) 0.300, Neut % (Auto) 55.7, Lymph % (Auto) 27.8, [place] % (Auto) 8.9, Eos % (Auto) 6.8 H, Baso % (Auto) 0.5, Absolute Neuts (auto) 4.4, Absolute Lymphs (auto) 2.20, Total Counted Not Reportable 02/26/19 06:28: POC Glucose 101 02/26/19 06:50: Urine Opiates Screen NEGATIVE, Urine Methadone Screen NEGATIVE, Ur Barbiturates Screen POSITIVE H, Ur Phencyclidine Scrn NEGATIVE, Ur Amphetamines Screen NEGATIVE, U Methamphetamin-MDMA NEGATIVE, U Benzodiazepines Scrn POSITIVE H, Urine Cocaine Screen NEGATIVE, U Cannabinoids Screen NEGATIVE, Ur Drug Screen Comment Code Visit Inpatient E&M: 66182 Subs Hosp L2
[2019-02-27 14:00] VITALS: BP 118/77; PULSE 60; RESP 14; RESP 16; TEMP 36.8; O2SAT 99
[2019-02-27] MEDS: Pantoprazole Sodium 40 MG Tablet PO (17:35)
[2019-02-27 20:12] VITALS: BP 136/90; PULSE 58; RESP 16; TEMP 37.1; O2SAT 100
[2019-02-28] MEDS: chlordiazePOXIDE 25 MG Capsule PO (05:13)
[2019-02-28 05:15] VITALS: BP 121/75; PULSE 53; RESP 16; TEMP 36.6; O2SAT 98
[2019-02-28 08:03] VITALS: BP 142/90; PULSE 60; RESP 14; TEMP 36.9
[2019-02-28] MEDS: Multivitamins,Therapeutic Tablet 1 TABLET PO (08:05)
[2019-02-28] MEDS: Thiamine Hydrochloride 100 MG Tablet PO (08:05)
[2019-02-28] MEDS: Folic Acid 1 MG Tablet PO (08:06)
--- NOTE | 2019-02-28 09:52 | DS.PCM_ITS ---
Discharge Date and Diagnosis Date of Admission: 02/25/19 Date of Discharge: 02/28/19 - Secondary Discharge Diagnosis Chronic Problems Alcoholism (Chronic) Hypertension (Chronic) Hospital Course and Treatment Summary of Care Provided: The patient is a 38 year old gentleman with history of chronic alcohol use and dependence. Patient also had used heroin and cocaine in the past. Uses Klonopin occasionally. 1. Acute alcohol withdrawal syndrome with history of chronic alcohol use and dependence: CIWA score on admission was 16. It improved to 0. Currently patient does not have diarrhea. No sweating. 2. Chronic alcoholic hepatitis: AST 41. ALT 78. Alkaline phosphatase 112. 3. Sinus bradycardia: Discontinue metoprolol. polycythemia most probably is secondary secondary to hemoconcentration/dehydrat ion and/or chronic alcohol use. Repeat H&H has improved. DVT prophylaxis: Low risk; encouraged ambulation. Discharge medication reconciliation done. Discharge follow-up instructions completed. Discharge process discussed with the patient and all questions were answered to patient's satisfaction. Prescription was given for Protonix. Patient was advised [id number] thiamine, folic acid and multivitamin. Laboratory Results 02/25/19 17:45: POC Glucose 116 H 02/25/19 22:00: POC Glucose 119 H 02/26/19 06:05: WBC 7.9, RBC 5.43, Hgb 17.5 H, Hct 50.7, MCV 93.4, MCH 32.2 H, MCHC 34.5, RDW 14.4, RDW Differential 48.7 H, Plt Count 165, MPV 9.7, Immature Gran % (Auto) 0.300, Neut % (Auto) 55.7, Lymph % (Auto) 27.8, [place] % (Auto) 8.9, Eos % (Auto) 6.8 H, Baso % (Auto) 0.5, Absolute Neuts (auto) 4.4, Absolute Lymphs (auto) 2.20, Total Counted Not Reportable 02/26/19 06:28: POC Glucose 101 02/26/19 06:50: Urine Opiates Screen NEGATIVE, Urine Methadone Screen NEGATIVE, Ur Barbiturates Screen POSITIVE H, Ur Phencyclidine Scrn NEGATIVE, Ur Amphetamines Screen NEGATIVE, U Methamphetamin-MDMA NEGATIVE, U Benzodiazepines Scrn POSITIVE H, Urine Cocaine Screen NEGATIVE, U Cannabinoids Screen NEGATIVE, Ur Drug Screen Comment Subjective: Seen and examined today. Patient is awake alert related x3. Patient went to bathroom and walking around independently. - Physical Exam General: Alert, Oriented x3, Cooperative HEENT: Atraumatic, PERRLA, EOMI, Normocephalic Neck: Supple, No JVD, Negative Carotid Bruits Lungs: Clear to auscultation, Normal air movement, No rhonchi, No wheeze, No rales Cardiovascular: Regular rate, Regular Rhythm, Normal S1, Normal S2, No murmurs Abdomen: Bowel Sounds Present, Soft, Non Tender, Non-Distended Extremities: No edema, Capillary Refill Less than 3 Seconds Skin: No rashes, No breakdown Musculoskeletal: No Tenderness to Palpation of Joints or Extremities Lymphatic: No Cervical, Supraclavicular, or Inguinal Adenopathy Neurological: Cranial nerves II-XII grossly intact, Deep Tendon Reflexes 2+/4 and Symmetrical, Neuro grossly intact Psych/Mental Status: Normal Affect, Appropriate Vital Signs Temp Pulse Resp BP Pulse Ox 98.4 F 60 14 142/90 H 98 02/28/19 08:03 02/28/19 08:03 02/28/19 08:03 02/28/19 08:03 02/28/19 05:15 Oxygen Delivery Method Room Air Weight: 173 lb 15.997 oz Body Mass Index (BMI) 23.6 Intake and Output for Last 24 Hours 02/26/19 02/27/19 02/28/19 23:59 23:59 23:59 Intake Total 1180 / 1180 600 / 600 600 / 600 Balance 1180 / 1180 600 / 600 600 / 600 Discharge Activity: May Not Drive Weight Bearing Status: Weight bearing as tolerated Call your doctor if you observe: Fever of 101 or Higher, Shortness of breath, Dizziness, Fainting spells, Swelling in the ankles, Chest pain, Increased palpitations (irregular heartbeat), Calf discomfort Home Medications: Medications to take at Discharge Pantoprazole Sodium [Protonix] 40 mg PO DAILY #30 tab 02/28/19 Following Prescrptions Were Given to Patient: Pantoprazole Sodium [Protonix] 40 mg PO DAILY #30 tab Primary Care Physician: Care Physician,No Primary [Primary Care Provider] - Please follow up with your Primary Care Physician in: in 1-2 week Medical Necessity - Tobacco Use Smoking Status: Current every day smoker Meaningful Use Info Meaningful Use Diagnoses (Choose all that apply): None applicable Code Visit Inpatient E&M: 05088 Disch Hosp
--- NOTE | 2019-02-28 09:52 | DCINST_ITS ---
You will use the following diet at home:: Regular Discharge Activity: May Not Drive Weight Bearing Status: Weight bearing as tolerated Call your doctor if you observe: Fever of 101 or Higher, Shortness of breath, Dizziness, Fainting spells, Swelling in the ankles, Chest pain, Increased palpitations (irregular heartbeat), Calf discomfort Additional Instructions: Follow-up alcohol detox rehab as an outpatient, arranged by [facility] mattress spring encaser Allergies/Adverse Reactions: Allergies hydroxyzine [From Vistaril] Adverse Reaction (Verified 02/25/19 17:53) Other Sulfa (Sulfonamide Antibiotics) Adverse Reaction (Verified 01/07/19 17:17) Hives Medications to take at Discharge Pantoprazole Sodium [Protonix] 40 mg PO DAILY #30 tab 02/28/19 The following prescriptions were given: Pantoprazole Sodium [Protonix] 40 mg PO DAILY #30 tab Primary Care Physician: Care Physician,No Primary [Primary Care Provider] - Please follow up with your Primary Care Physician in: in 1-2 week Test Results: Test results from this visit will be discussed in further detail at your follow- up appointment, if applicable.
== END 2019-02-28 10:22 | disposition home or self-care (01) | DRG 773 ==
PROVIDERS: Admitting Provider Student in an Organized Health Care Education/Training Program; Referring Provider Student in an Organized Health Care Education/Training Program; Visit Provider Internal Medicine
DX: F10.239 Alcohol dependence with withdrawal, unspecified (principal); K70.10 Alcoholic hepatitis without ascites; F14.90 Cocaine use, unspecified, uncomplicated; Y90.9 Presence of alcohol in blood, level not specified; F11.90 Opioid use, unspecified, uncomplicated; F17.200 Nicotine dependence, unspecified, uncomplicated; I10 Essential (primary) hypertension
CPT/HCPCS: 36415; 80053; 80307; 80320; 82962; 83735; 85025; 97802; J7030; G0480

== ENCOUNTER 2019-03-01 15:07 | Emergency (ER) | payer MEDICAID, SELFPAY ==
[2019-02-25 12:41] VITALS: BMI 23.6
[2019-03-01 15:07] VITALS: BP 146/91; BP 173/100; PULSE 108; PULSE 89; RESP 16; RESP 18; TEMP 36.9; O2SAT 97; O2SAT 98; BMI 24.9
[2019-03-01 15:19] VITALS: O2SAT 95
--- NOTE | 2019-03-01 15:19 | EKG12_ITS ---
Test Reason : PALPS Blood Pressure : / mmHG Vent. Rate : 088 BPM Atrial Rate : 088 BPM P-R Int : 116 ms QRS Dur : 082 ms QT Int : 350 ms P-R-T Axes : 064 067 054 degrees QTc Int : 423 ms Normal sinus rhythm Nonspecific ST abnormality Abnormal ECG Confirmed by SHANNON MEJÍA, VELMA ([id number]), non linear editor MARTA CORRIGAN ([id number] on 03/05/2019 6:30:22 AM Referred By: SHAHAB/LEELA Confirmed By:VELMA ORTEGA MD
--- NOTE | 2019-03-01 15:25 | RAD_ITS ---
STUDY: X-RAY CHEST REASON FOR EXAM: Male, 38 years old. Chest pain. TECHNIQUE: Single frontal view of the chest. COMPARISON: January 10, 2019 FINDINGS: There is stable hyperexpansion compatible with COPD. There is no demonstrated pleural abnormality. Normal size heart. Normal mediastinum and eloisa. Normal visualized pulmonary arteries. Normal visualized aortic arch and descending thoracic aorta. Normal visualized thoracic spine. Normal visualized ribs, clavicles, and shoulders. There is no demonstrated abnormality of the visualized soft tissue structures of the upper abdomen. RAD/Chest 1 View (Portable) IMPRESSION: Stable COPD with no acute finding. Electronically Signed: Raul Wolfe MD at 15:45 EDT , Service support ,
--- NOTE | 2019-03-01 15:41 | ED.VIS.CHEST ---
History of Present Illness Chief Complaint: Hypertension Informant: Patient Narrative: Patient presenting for evaluation secondary to palpitations and hypertension. Patient has a history of alcohol abuse, and was recently discharged from [facility]. Patient states that while he was in the hospital, he was noted to be bradycardic. Patient reports that he has been on metoprolol for over a year and a half for blood pressure control, and they discontinued his metoprolol use while he was in the hospital due to his bradycardia. He reports that when he was discharged home however he was not sent home with any alternative antihypertensives. Patient states that today he was going up some stairs, and started to notice that he was having some heart palpitations. He denies that it was associated with pain or shortness of breath or lightheadedness. He denies any headaches or visual changes. Patient states that he took his blood pressure and noted it to be 200 systolic. Patient states he was concerned that potentially he was withdrawing from alcohol, so he cracked a beer drink it took his metoprolol and then came to the hospital. Patient denies any hemoptysis. Review of systems otherwise negative. Past Medical History - Allergies and Home Meds Allergies/Adverse Reactions: Allergies hydroxyzine [From Vistaril] Adverse Reaction (Verified 03/01/19 15:09) Other Sulfa (Sulfonamide Antibiotics) Adverse Reaction (Verified 03/01/19 15:09) Hives Primary Care Physician: Care Physician,No Primary [Primary Care Provider] - Surgical History: no surgical history Smoking Status: Current every day smoker - Family History Maternal Family History: Reports: No pertinent history Paternal Family History: Reports: No pertinent history Review of Systems All systems negative except as indicated General: Denies: Fever Eyes: Denies: Visual changes - bilaterally Cardiovascular: Reports: Palpitations. Denies: Chest pain Respiratory: Denies: Dyspnea Physical Exam Vital Signs/Narrative: Vital Signs Temp Pulse Resp BP Pulse Ox 03/01/19 15:19 95 03/01/19 15:07 98.5 F 108 H 18 173/100 H 98 Inital Vital Signs reviewed: Yes General: Well nourished, Well developed, No Acute Distress Head: Normocephalic, Atraumatic Eyes: Perrl, EOMI ENT: Moist mucous membranes, No rhinorrhea Neck: Supple, Nontender Cardiovascular: Regular rhythm, No murmurs, Tachycardia, - - 2+ radial pulses bilaterally symmetric Respiratory: No distress, CTA bilaterally, Chest nontender Abdomen: Soft, Nontender, Nondistended, Normal bowel sounds Back: Nontender, Normal Inspection Extremities: Nontender, No edema Skin: Normal color, No rash Neurological: Alert, Oriented x3, Cranial nerves II-XII grossly intact, Normal Strength, Normal Sensation Psychological: Normal affect, Normal Mood Diagnostic/Tx/Re-eval - EKG Initial EKG Interpretation: - - Sinus rhythm of [address] changes, no evidence of ST elevation, normal T waves, normal intervals no evidence of acute ischemia or arrhythmia. - Medical Decision Making Patient presented secondary to palpitations and hypertension. EKG was within normal limits. Patient's laboratory work-up shows polycythemia which the patient has a history of in the past, and likely is associated with his underlying COPD. Patient's blood pressure improved in the emergency department without intervention. Troponin was found to be negative. I informed the patient multiple times that he just went through alcohol detox and he cannot drink anymore. Patient is still mildly hypertensive, and given his bradycardia while he was in the hospital I will send the patient home on a low-dose of lisinopril rather than his metoprolol that he was on before. Patient was discharged in improved condition. Disposition: Home ED Disposition - Plan for ED Patient: Disposition: Home or Assisted Living Diagnosis: Hypertension Instructions: ED HTN Established Prescriptions: Lisinopril 2.5 mg PO DAILY #30 tab Referrals: Zak Luz MD [NON-STAFF] - 1-2 Weeks
[2019-03-01 15:51] LABS: Absolute Lymphocyte Count 1.77 X10^3/ul (0.83-4.51); Absolute Neutrophil Count 7.1 X10^3/uL (2.0-7.7); Basophil# 0.03 X10^3/uL; Basophil% 0.3 % (0-1); Eosinophil# 0.36 X10^3/uL; Eosinophils% 3.5 % (0-5); Hematocrit 54.4 % (40-54); Lymphocyte # 1.77 X10^3/ul (4.0); Lymphocyte % 17.4 % (19-41); Mean Corp Hgb Conc 35.1 g/gl (32-36); Mean Corpuscular Hgb 32.8 pg (27.0-32.0); Mean Corpuscular Volume 93.3 fL (80-94); Mean Platelet Vol. 9.6 fl (6.2-12.0); Monocyte# 0.85 X10^3/uL; Monocyte% 8.3 % (0-10); Neutrophil # 7.14 X10^3/uL (2.7-7.7); Neutrophil % 70.2 % (47-70); Platelet Count 146 K/mm3 (150-450); RBC Distribution Width CV 14.2 % (11.6-14.6); RBC Distribution Width SD 47.9 fl (35.1-43.9); Red Blood Count 5.83 M/mm3 (4.6-6.2); White Blood Count 10.2 K/mm3 (4.4-11.0)
[2019-03-01 15:57] LABS: Hemoglobin 19.1 g/dl (13.0-16.5); POSITIVE COUNT NO; POSITIVE DIFFERENTIAL NO; POSITIVE MORPHOLOGY NO
[2019-03-01 16:10] LABS: Anion Gap 6 (5-15); BUN 12 mg/dL (7-18); BUN/Creat Ratio 11.4 RATIO (10-20); Calcium,Total 8.9 mg/dL (8.5-10.1); Chloride 101 mmol/L (98-107); Creatinine, Serum 1.05 mg/dL (0.70-1.30); EST Glomerular Filtration Rate 84 mL/min (>60); Est Glom Filt Rate - Afr Amer 102 mL/min (>60); Glucose 117 mg/dL (74-106); Potassium 3.5 mmol/L (3.5-5.1); Sodium Level 136 mmol/L (136-145)
[2019-03-01 16:31] VITALS: BP 143/99; PULSE 78; RESP 18; O2SAT 99
== END 2019-03-01 16:32 | disposition home or self-care (01) ==
PROVIDERS: Emergency Provider Emergency Medicine
DX: I10 Essential (primary) hypertension (principal); F17.200 Nicotine dependence, unspecified, uncomplicated
CPT/HCPCS: 71045; 80048; 84484; 85025; 93005; 99284

== ENCOUNTER 2019-06-26 23:50 | Emergency (ER) | payer MEDICAID, SELFPAY ==
[2019-06-26 23:51] VITALS: BP 147/92; PULSE 103; RESP 16; TEMP 36.6; O2SAT 97; BMI 22.6
[2019-06-27] MEDS: 0.9% Normal Saline 1,000 ML 1000 ML IV (00:50)
[2019-06-27] MEDS: LORazepam 2 MG/ML Syringe 0.5 MG IV (00:50)
[2019-06-27 00:56] LABS: Bacteria 0 SEEN /hpf (None Seen); Mucous, Urine 0 SEEN /hpf (<or=2+); Red Blood Cells-Urine 0 SEEN /hpf (0-5); Squamous Epithelial Cells - UA 0 SEEN /hpf (0-5); White Blood Cells 0 SEEN /hpf (0-5)
[2019-06-27 00:58] LABS: Color, Urine Straw (Yellow); Glucose, Dipstick Normal (Normal); Ketone-Dipstick Negative (Negative); Leukocyte Esterase-Dipstick Negative /ul (Negative); Nitrite-Dipstick Negative (Negative); Occult Blood-Urine Negative /ul (Negative); Protein-Dipstick Negative (Negative); Specific Gravity, Urine 1.005 (1.002-1.030); Urine Bilirubin Dipstick Negative (Negative); Urine Clarity Clear (Clear); Urine Urobilinogen Normal (Normal)
[2019-06-27 01:15] LABS: Absolute Lymphocyte Count 2.96 X10^3/uL (0.83-4.51); Absolute Neutrophil Count 5.7 X10^3/uL (2.0-7.7); Basophil# 0.07 X10^3/uL; Basophil% 0.7 % (0-1); Eosinophil# 0.44 X10^3/uL; Eosinophils% 4.4 % (0-5); Hematocrit 51.3 % (40-54); Hemoglobin 17.7 g/dL (13.0-16.5); Lymphocyte # 2.96 X10^3/ul (4.0); Lymphocyte % 29.7 % (19-41); Mean Corp Hgb Conc 34.5 g/dL (32-36); Mean Corpuscular Hgb 31.1 pg (27.0-32.0); Mean Platelet Vol. 8.8 fl (6.2-12.0); Monocyte# 0.73 X10^3/uL; Monocyte% 7.3 % (0-10); NRBC Flagged by Analyzer 0 % (0-5); Neutrophil # 5.73 X10^3/uL (2.7-7.7); Neutrophil % 57.6 % (47-70); Platelet Count 294 K/mm3 (150-450); RBC Distribution Width CV 12.9 % (11.6-14.6)
[2019-06-27 01:20] LABS: AST(SGOT) 89 U/L (15-37); Alanine Aminotransfer ALT/SGPT 83 U/L (16-61); Albumin, Serum 4.3 g/dL (3.2-5.0); Alkaline Phosphatase 87 U/L (45-117); Anion Gap 8 (5-15); BUN 8 mg/dL (7-18); BUN/Creat Ratio 8.2 RATIO (10-20); Bilirubin, Direct 0.35 mg/dL (0.00-0.30); Calcium,Total 8.9 mg/dL (8.5-10.1); Chloride 101 mmol/L (98-107); Creatinine, Serum 0.98 mg/dL (0.70-1.30); EST Glomerular Filtration Rate 91 mL/min (>60); Est Glom Filt Rate - Afr Amer 110 mL/min (>60); Estimated Creatinine Clearance 112.76 ml/min; Globulin 3.7 g/dL (2.2-4.2); Glucose 103 mg/dL (74-106); Potassium 4.1 mmol/L (3.5-5.1); Sodium Level 136 mmol/L (136-145)
[2019-06-27] MEDS: 0.9% Normal Saline 1,000 ML 150 ML IV (02:00)
--- NOTE | 2019-06-27 02:28 | ED.DCSUM_ITS ---
History of Present Illness Chief Complaint: ETOH Intox Informant: Patient, Significant Other Narrative: Patient presents with complaints of not thinking clearly. He states he had been sober from alcohol for several months and started drinking again over the past 1 week. States he feels like his mind is racing. He states that he typically has very bad withdrawal symptoms but has not had any of those recently. His last drink was just prior to arrival. Significant other at bedside thinks that he is likely dehydrated. I specifically asked the patient if he was here to get help with detox and he denied this. Past Medical History - Allergies and Home Meds Allergies/Adverse Reactions: Allergies hydroxyzine [From Vistaril] Adverse Reaction (Verified 06/27/19 00:17) Other Sulfa (Sulfonamide Antibiotics) Adverse Reaction (Verified 06/27/19 00:17) Hives Prior records reviewed: Yes Past Medical History: - - Reviewed Surgical History: no surgical history Lives: Spouse/ Significant Other Smoking Status: Current every day smoker - Family History Maternal Family History: Reports: No pertinent history Paternal Family History: Reports: No pertinent history Review of Systems General: Denies: Chills, Fever Eyes: Denies: Visual changes - bilaterally ENT: Denies: Bilateral ear pain Cardiovascular: Denies: Chest pain Respiratory: Denies: Dyspnea, Cough Gastrointestinal: Denies: Abdominal pain, Nausea, Vomiting, Diarrhea Musculoskeletal: Denies: Neck pain, Back pain Skin: Denies: Rash Neurological: Denies: Headache, Numbness Endocrine: Denies: Polyuria, Polydipsia Hematologic: Denies: Easy bruising Physical Exam Vital Signs/Narrative: Vital Signs Temp Pulse Resp BP Pulse Ox 06/26/19 23:51 97.8 F 103 H 16 147/92 H 97 Inital Vital Signs reviewed: Yes General: Well nourished, Well developed, - - Smells of alcoholic beverage ENT: Moist mucous membranes Neck: Supple Cardiovascular: Regular rate, Regular rhythm Respiratory: No distress, CTA bilaterally Abdomen: Soft, Nontender, Normal bowel sounds Extremities: Nontender Skin: Normal color, No rash Neurological: Alert, Oriented x3, Normal Strength, Normal Sensation Psychological: Normal affect Diagnostic/Tx/Re-eval Laboratory Results 06/27/19 06/27/19 06/27/19 00:10 00:40 00:40 WBC 10.0 RBC 5.70 Hgb 17.7 H Hct 51.3 MCV 90.0 MCH 31.1 MCHC 34.5 RDW Std Deviation 42.0 RDW Coeff of Artemio 12.9 Plt Count 294 MPV 8.8 Immature Gran % (Auto) 0.300 Neut % (Auto) 57.6 Lymph % (Auto) 29.7 [place] % (Auto) 7.3 Eos % (Auto) 4.4 Baso % (Auto) 0.7 Absolute Neuts (auto) 5.7 Absolute Lymphs (auto) 2.96 Nucleated RBC % 0 Sodium 136 Potassium 4.1 Chloride 101 Carbon Dioxide 27.0 Anion Gap 8 BUN 8 Creatinine 0.98 Estim Creat Clear Calc 112.76 Est GFR (MDRD) Af Amer 110 Est GFR (MDRD) Non-Af 91 BUN/Creatinine Ratio 8.2 L Glucose 103 Calcium 8.9 Total Bilirubin 1.10 H Direct Bilirubin 0.35 H AST 89 H ALT 83 H Alkaline Phosphatase 87 Total Protein 8.0 Albumin 4.3 Globulin 3.7 Urine Color Straw Urine Clarity Clear Urine pH 7.0 Ur Specific [place] 1.005 Urine Protein Negative Urine Glucose (UA) Normal Urine Ketones Negative Urine Occult Blood Negative Urine Nitrite Negative Urine Bilirubin Negative Urine Urobilinogen Normal Ur Leukocyte Esterase Negative Urine RBC 0 SEEN Urine WBC 0 SEEN Ur Squamous Epith Cells 0 SEEN Urine Bacteria 0 SEEN Urine Mucus 0 SEEN Ethyl Alcohol 06/27/19 00:40 WBC RBC Hgb Hct MCV MCH MCHC RDW Std Deviation RDW Coeff of Artemio Plt Count MPV Immature Gran % (Auto) Neut % (Auto) Lymph % (Auto) [place] % (Auto) Eos % (Auto) Baso % (Auto) Absolute Neuts (auto) Absolute Lymphs (auto) Nucleated RBC % Sodium Potassium Chloride Carbon Dioxide Anion Gap BUN Creatinine Estim Creat Clear Calc Est GFR (MDRD) Af Amer Est GFR (MDRD) Non-Af BUN/Creatinine Ratio Glucose Calcium Total Bilirubin Direct Bilirubin AST ALT Alkaline Phosphatase Total Protein Albumin Globulin Urine Color Urine Clarity Urine pH Ur Specific [place] Urine Protein Urine Glucose (UA) Urine Ketones Urine Occult Blood Urine Nitrite Urine Bilirubin Urine Urobilinogen Ur Leukocyte Esterase Urine RBC Urine WBC Ur Squamous Epith Cells Urine Bacteria Urine Mucus Ethyl Alcohol 272.0 - Medical Decision Making Patient was given a liter of IV fluids and 0.5 mg of IV Ativan. Hemoglobin is concentrated at 17.7 and EtOH returns at 272. Repeat evaluation patient is resting comfortably. He thinks staff multiple times for helping him. He is given information for 180 and encouraged to follow-up with them to get help with his drinking. ED Disposition - Plan for ED Patient: Disposition: Home or Assisted Living Diagnosis: Alcohol intoxication, Dehydration Instructions: Dehydration, Alcohol Intoxication Referrals: [facility] [STAFF PHYSICIAN] - As soon as possible
[2019-06-27 02:30] VITALS: BP 145/90; PULSE 96; RESP 18; O2SAT 97
== END 2019-06-27 02:41 | disposition home or self-care (01) ==
PROVIDERS: Emergency Provider Emergency Medicine
DX: F10.129 Alcohol abuse with intoxication, unspecified (principal); Y90.8 Blood alcohol level of 240 mg/100 ml or more; F17.200 Nicotine dependence, unspecified, uncomplicated; E86.0 Dehydration
CPT/HCPCS: 80048; 80076; 80320; 81001; 85025; 96361; 96374; 99283; A4216; G0480

== ENCOUNTER 2019-07-19 01:56 | Emergency (ER) | payer MEDICAID, SELFPAY ==
[2019-07-19 01:57] VITALS: BP 129/69; PULSE 92; RESP 16; TEMP 36.9; O2SAT 95; BMI 23.6
--- NOTE | 2019-07-19 02:44 | ED.VIS.GEN ---
History of Present Illness Chief Complaint: Complaint Informant: Patient Onset: Yesterday Context: Gradual Onset Timing: Continuous Narrative: Patient is a 38-year-old male with history of IV drug abuse, hepatitis C and alcohol abuse presenting with urinary retention. Patient states that he feels that he cannot pee in his belly feels uncomfortable and distended. He thinks this is because of the heroin that he has been using. Patient denies any history of urinary retention. He is not sure the last time he peed and it was either this evening (about 8 hours ago) or yesterday. Patient does admit to drinking heavily today as well as using heroin about 6 hours prior to arrival. Patient denies any chest pain, shortness of breath or difficulty breathing. He denies any other complaints at this time. Past Medical History - Allergies and Home Meds Allergies/Adverse Reactions: Allergies hydroxyzine [From Vistaril] Adverse Reaction (Verified 07/19/19 02:01) Other Sulfa (Sulfonamide Antibiotics) Adverse Reaction (Verified 07/19/19 02:01) Hives Primary Care Physician: Care Physician,No Primary [Primary Care Provider] - Past Medical History: - - Hepatitis C, history of IV drug use, alcohol abuse Surgical History: no surgical history Lives: Alone Smoking Status: Current every day smoker Alcohol: Heavy Drugs: Heroin - Family History Maternal Family History: Reports: No pertinent history Paternal Family History: Reports: No pertinent history Review of Systems All systems negative except as indicated Gastrointestinal: Reports: Abdominal pain, Nausea Genitourinary: Reports: - - difficulty urinating Physical Exam Vital Signs/Narrative: Vital Signs Temp Pulse Resp BP Pulse Ox 07/19/19 01:57 98.4 F 92 16 129/69 H 95 Inital Vital Signs reviewed: Yes General: Well nourished, Well developed, No Acute Distress Head: Normocephalic, Atraumatic Eyes: Perrl, EOMI, - - Pupils 3 mm bilaterally ENT: Moist mucous membranes, No rhinorrhea Neck: Supple, Nontender Cardiovascular: Regular rate, Regular rhythm, No murmurs Respiratory: No distress, CTA bilaterally, Chest nontender Abdomen: Soft, Nondistended, Normal bowel sounds, Tender - Suprapubic. Negative for: Pulsatile mass Back: Nontender, Normal Inspection. Negative for: CVA tenderness Extremities: Nontender, No edema Skin: Normal color, No rash Neurological: Alert, Oriented x3, Cranial nerves II-XII grossly intact, Normal Strength, Normal Sensation, - - Mildly slurred speech Psychological: Normal affect, Normal Mood, - - Patient behaving appropriately but clinically intoxicated Diagnostic/Tx/Re-eval Laboratory Results - last 24 hr 07/19/19 07/19/19 07/19/19 02:55 02:55 02:55 WBC 8.9 RBC 4.51 L Hgb 14.3 Hct 41.4 MCV 91.8 MCH 31.7 MCHC 34.5 RDW Std Deviation 43.2 RDW Coeff of Artemio 12.8 Plt Count 177 MPV 8.9 Immature Gran % (Auto) 0.300 Neut % (Auto) 43.9 L Lymph % (Auto) 38.3 [place] % (Auto) 12.2 H Eos % (Auto) 4.6 Baso % (Auto) 0.7 Absolute Neuts (auto) 3.9 Absolute Lymphs (auto) 3.42 Nucleated RBC % 0 Sodium 130 L Potassium 3.1 L Chloride 92 L Carbon Dioxide 27.0 Anion Gap 11 BUN 20 H Creatinine 1.45 H Estim Creat Clear Calc 78.06 Est GFR (MDRD) Af Amer 70 Est GFR (MDRD) Non-Af 58 L BUN/Creatinine Ratio 13.8 Glucose 115 H Calcium 8.1 L Total Bilirubin 0.80 AST 77 H ALT 86 H Alkaline Phosphatase 69 Total Protein 6.6 Albumin 3.6 Globulin 3.0 Albumin/Globulin Ratio 1.2 Urine Color Yellow Urine Clarity Clear Urine pH 6.0 Ur Specific [place] 1.015 Urine Protein Negative Urine Glucose (UA) Normal Urine Ketones Negative Urine Occult Blood Negative Urine Nitrite Negative Urine Bilirubin Negative Urine Urobilinogen Normal Ur Leukocyte Esterase Negative Urine RBC 0 SEEN Urine WBC 0 SEEN Ur Squamous Epith Cells 0 SEEN Urine Bacteria 0 SEEN Urine Mucus 0 SEEN - Medical Decision Making Patient is evaluated for difficulty urinating. He attempts to urinate in the ER but is unable to. He is not sure the last time he urinated but he thinks it was at least 8 hours ago. Patient also admits to drinking heavily tonight as well as using heroin. Patient is behaving appropriately and has no signs of trauma. He is normal neurologic exam however he is clinically intoxicated. Carpio catheter is placed and patient has 400 to 500 cc of urine in his bladder. He has improvement of his symptoms after Carpio catheter placement. CBC is normal. BMP shows a mildly elevated creatinine. Patient is given a liter of fluid. He also has mild hyponatremia and hypokalemia. He is given oral potassium replacement. I suspect this is likely from his lifestyle/alcohol use. Patient states he is interested in detox but does not want it right now. Patient is kept in the ER until he is clinically sober. He is ambulating easily. He will be discharged home with a leg bag with referral to urology and PCP. Patient is counseled on signs and symptoms requiring return to the emergency room. Patient verbalizes agreement and understand this plan. Patient discharged home in stable and improved condition. ED Disposition - Plan for ED Patient: Disposition: Home or Assisted Living Diagnosis: Acute urinary retention, Alcohol intoxication, Heroin abuse Instructions: URINARY RETENTION, Male, Alcohol Abuse, Addiction: Your Treatment Options, Renal Insufficiency Referrals: Care Physician,No Primary [Primary Care Provider] - Wen Abad MD [STAFF PHYSICIAN] - Cory Guido MD [STAFF PHYSICIAN] - Additional Instructions: Please follow-up with either urology, Dr. Guido, or primary care doctor in the next few days to a week to have your Carpio catheter removed. Please try to abstain from alcohol and illicit drug use. Return to the emergency room if you are having any worsening symptoms feel like you need help with detox.
[2019-07-19 03:03] LABS: Bacteria 0 SEEN /hpf (None Seen); Mucous, Urine 0 SEEN /hpf (<or=2+); Red Blood Cells-Urine 0 SEEN /hpf (0-5); Squamous Epithelial Cells - UA 0 SEEN /hpf (0-5); White Blood Cells 0 SEEN /hpf (0-5)
[2019-07-19 03:04] LABS: Color, Urine Yellow (Yellow); Glucose, Dipstick Normal (Normal); Ketone-Dipstick Negative (Negative); Leukocyte Esterase-Dipstick Negative /ul (Negative); Nitrite-Dipstick Negative (Negative); Occult Blood-Urine Negative /ul (Negative); Protein-Dipstick Negative (Negative); Specific Gravity, Urine 1.015 (1.002-1.030); Urine Bilirubin Dipstick Negative (Negative); Urine Clarity Clear (Clear); Urine Urobilinogen Normal (Normal)
[2019-07-19 03:05] LABS: Absolute Lymphocyte Count 3.42 X10^3/uL (0.83-4.51); Absolute Neutrophil Count 3.9 X10^3/uL (2.0-7.7); Basophil# 0.06 X10^3/uL; Basophil% 0.7 % (0-1); Eosinophil# 0.41 X10^3/uL; Eosinophils% 4.6 % (0-5); Hematocrit 41.4 % (40-54); Hemoglobin 14.3 g/dL (13.0-16.5); Lymphocyte # 3.42 X10^3/ul (4.0); Lymphocyte % 38.3 % (19-41); Mean Corp Hgb Conc 34.5 g/dL (32-36); Mean Corpuscular Hgb 31.7 pg (27.0-32.0); Mean Corpuscular Volume 91.8 fL (80-94); Mean Platelet Vol. 8.9 fl (6.2-12.0); Monocyte# 1.09 X10^3/uL; Monocyte% 12.2 % (0-10); NRBC Flagged by Analyzer 0 % (0-5); Neutrophil # 3.92 X10^3/uL (2.7-7.7); Neutrophil % 43.9 % (47-70); Platelet Count 177 K/mm3 (150-450); RBC Distribution Width CV 12.8 % (11.6-14.6); RBC Distribution Width SD 43.2 fl (35.1-43.9); Red Blood Count 4.51 M/mm3 (4.6-6.2); White Blood Count 8.9 K/mm3 (4.4-11.0)
[2019-07-19 03:28] LABS: ALB/GLOB Ratio 1.2 RATIO (0.9-2.4); AST(SGOT) 77 U/L (15-37); Alanine Aminotransfer ALT/SGPT 86 U/L (16-61); Albumin, Serum 3.6 g/dL (3.2-5.0); Alkaline Phosphatase 69 U/L (45-117); Anion Gap 11 (5-15); BUN 20 mg/dL (7-18); BUN/Creat Ratio 13.8 RATIO (10-20); Calcium,Total 8.1 mg/dL (8.5-10.1); Chloride 92 mmol/L (98-107); Creatinine, Serum 1.45 mg/dL (0.70-1.30); EST Glomerular Filtration Rate 58 mL/min (>60); Est Glom Filt Rate - Afr Amer 70 mL/min (>60); Estimated Creatinine Clearance 78.06 ml/min; Glucose 115 mg/dL (74-106); Potassium 3.1 mmol/L (3.5-5.1); Protein, Total 6.6 g/dL (6.4-8.2); Sodium Level 130 mmol/L (136-145)
[2019-07-19] MEDS: 0.9% Normal Saline 1,000 ML 999 ML IV (03:42)
[2019-07-19 03:57] VITALS: PULSE 82; RESP 87
--- NOTE | 2019-07-19 03:58 | ED.RN ---
PT SPO2 DROPPED TO 87 AND STAYED LOW, 3L OF O2 PLACED ON PT. SATS CAME UP TO 95. DR. CERDA MADE AWARE. WILL CONTINUE TO MONITOR THE PT.
[2019-07-19 08:21] VITALS: BP 131/62; PULSE 71; RESP 16; O2SAT 98
== END 2019-07-19 08:22 | disposition home or self-care (01) ==
PROVIDERS: Emergency Provider Emergency Medicine
DX: R33.9 Retention of urine, unspecified (principal); F10.129 Alcohol abuse with intoxication, unspecified; Y90.9 Presence of alcohol in blood, level not specified; F11.10 Opioid abuse, uncomplicated; F17.200 Nicotine dependence, unspecified, uncomplicated; B19.20 Unspecified viral hepatitis C without hepatic coma; E87.6 Hypokalemia
CPT/HCPCS: 51702; 80053; 81001; 85025; 99285; A4216